=== PATIENT | male | born 1990 | race Caucasian/White ===

== ENCOUNTER 2024-07-16 07:27 | Day surgery (SDC) | payer OTHER ==
[~2024-07-16] VITALS: Ht 170.2 cm; Wt 79.8 kg
[~2024-07-16 07:27] MED LIST: PRED10 PO
[2024-07-16] MEDS ORDERED: PRED FORTE5 M1 (08:00)
[2024-07-16] MEDS ORDERED: Lactated Ringer's 1,000 ML IV ONE (08:21)
[2024-07-16] MEDS ORDERED: CeFAZolin Sodium 2,000 MG VIAL ONE (08:25)
[2024-07-16] MEDS ORDERED: FentaNYL Citrate 50 MCG/ML 2 ML Injection ONE ×2 (08:38→10:49)
[2024-07-16] MEDS ORDERED: propofoL 40 ML IV ONE (08:38)
[2024-07-16] MEDS ORDERED: Midazolam HCl 1MG / ML 2ML Vial ONE (08:38)
--- NOTE | 2024-07-16 09:29 | NUR ---
07/16/24 0929 Harleen Pineda 0.15 ML OF EPI ADDED TO 0.5% TO ROPIVACAINE (150MG/30ML) TO MAKE ROPIVACAINE 0.5% WITH EPI 1:200,000.
[2024-07-16] MEDS ORDERED: Ropivacaine 0.5% HCl/Pf 5 MG/ML 20ML VIAL INJ ONE ×2 (09:31)
[2024-07-16] MEDS ORDERED: EPINEPhrine HCl 1 MG/ML 1ML Amp XX ONE ×3 (09:32)
[2024-07-16] MEDS ORDERED: HYDROmorphone HCl/Pf 1MG SYR ONE (09:44)
[2024-07-16] MEDS ORDERED: Dexamethasone Sod Phos 10 MG/ML 1ML VIAL ONE (09:55)
[2024-07-16] MEDS ORDERED: Ondansetron HCl 2 MG / ML 2ML Vial ONE (09:55)
[2024-07-16 10:34] VITALS: BP 148/73
--- NOTE | 2024-07-16 11:01 | NUR ---
07/16/24 1101 Seun Brown FENTANYL 25MCG IV GIVEN AT 1100 FOR RIGHT LEG PAIN AT 12/04
[2024-07-16] MEDS ORDERED: OxyCODONE 5 mg/Acetamin 325 mg TABLET ONE (11:10)
== END 2024-07-16 11:50 | disposition home or self-care (01) ==
LOC: ORSCSDS 07:27
PROVIDERS: Orthopaedic Surgery
PROC: 0SQC4ZZ Repair Right Knee Joint, Percutaneous Endoscopic Approach (ICD-10-PCS; principal; 2024-07-16 08:45)
DX: S83.241A Other tear of medial meniscus, current injury, right knee, initial encounter (principal)
CPT/HCPCS: A9270; C1713; J0171; J0690; J1100; J1171; J2250; J2405; J2704; J2795; J3010